=== PATIENT | female | born 1990 | race Caucasian/White ===

== ENCOUNTER 2018-12-23 21:26 | Emergency (ER) | payer OTHER ==
[~2018-12-23] VITALS: Ht 167.6 cm; Wt 95.3 kg
[2018-12-23 23:33] LABS: BILIRUBIN,URINE NEGATIVE (NEG); CLARITY,URINE CLEAR; COLOR,URINE YELLOW; NITRITE,URINE NEGATIVE (NEG); PH,URINE 5.5; PROTEIN,URINE NEGATIVE (NEG-TRACE); UROBILINOGEN,URINE 0.2 mg/dL (0.2 mg/dL)
[2018-12-23 23:35] LABS: BACTERIA,URINE 0 /HPF (0-FEW); WBC,URINE OCC /HPF (0-4)
[2018-12-23 23:36] LABS: RBC,URINE OCC /HPF (0-2); SQUAMOUS EPITHELIAL CELL,UR FEW /LPF
[2018-12-23] MEDS ORDERED: fentaNYL PF VIAL 100 MCG/2 ML VIAL IV ONE (23:45)
[2018-12-24 00:03] LABS: BASO % 0 % (0-3); EOS % 0 % (0-3); HEMATOCRIT 35.9 % (36.0-47.0); HEMOGLOBIN 12.1 g/dL (12.0-15.5); LYMPH # 2.8 x10^3/uL (1.0-4.8); LYMPH % 43 % (24-48); MEAN CORPUSCULAR HEMOGLOBIN 29 pg (25-35); MEAN CORPUSCULAR HGB CONC 34 g/dL (31-37); MEAN CORPUSCULAR VOLUME 85 fL (79-100); MONO # 0.5 x10^3/uL (0.0-1.1); MONO % 7 % (0-9); NEUT # 3.3 x10^3uL (1.8-7.7); NEUT % 50 % (31-73); PLATELET COUNT 232 x10^3/uL (140-400); RED BLOOD COUNT 4.25 x10^6/uL (3.50-5.40); RED CELL DISTRIBUTION WIDTH 14.7 % (11.5-14.5); WHITE BLOOD COUNT 6.6 x10^3/uL (4.0-11.0)
[2018-12-24 00:13] LABS: CALCIUM 9.5 mg/dL (8.5-10.1); CREATININE 0.9 mg/dL (0.6-1.0); GFR 75.1; POTASSIUM 3.7 mmol/L (3.5-5.1)
[2018-12-24 00:19] LABS: ALBUMIN 3.1 g/dL (3.4-5.0); ALBUMIN/GLOBULIN RATIO 0.6 (1.0-1.7); TOTAL BILIRUBIN 0.2 mg/dL (0.2-1.0)
[2018-12-24] MEDS ORDERED: fentaNYL PF VIAL 100 MCG/2 ML VIAL IV ONE (00:30)
[2018-12-24 00:33] VITALS: BP 127/75
[2018-12-24 00:40] LABS: U PREG PATIENT NEGATIVE (NEG)
--- NOTE | 2018-12-24 00:41 | RAD ---
Ultrasound pelvis 12/24/2018 INDICATION: Right lower quadrant pain. Ovarian cyst. COMPARISON: None available. TECHNIQUE: Sonographic evaluation of the pelvis was performed utilizing transabdominal and transvaginal imaging. Grayscale, color Doppler and spectral waveform analysis were utilized. FINDINGS: Uterus measures 6.5 x 4.4 x 3.6 cm. Endometrium measures 5 mm and is within normal limits. No suspicious uterine masses are identified. The right ovary measures 3.0 x 2.2 x 1.6 cm. There is a dominant follicle measuring 1.6 cm. Left ovary measures 3.1 x 1.8 x 1.8 cm. Dominant follicle in the left ovary measures 1.1 cm. Arterial and venous waveform identified bilaterally. There is no free fluid within the pelvis. IMPRESSION: Follicular changes are identified in the ovaries bilaterally which are perfused at the time of imaging. Electronically signed by: Nerissa Villaseñor MD (12/24/2018 12:38 AM) [id number]
[2018-12-24] MEDS ORDERED: CONTRAST GIVEN. MC PRN (01:00)
[2018-12-24] MEDS ORDERED: IOHEXOL 300 MG/ML 100ML VIAL. IV ONE (01:00)
--- NOTE | 2018-12-24 01:20 | RAD ---
PQRS Compliance Statement: One or more of the following individualized dose reduction techniques were utilized for this examination: 1. Automated exposure control 2. Adjustment of the mA and/or kV according to patient size 3. Use of iterative reconstruction technique CT abdomen/pelvis with contrast 12/24/2018 12:15 AM INDICATION: Right lower quadrant pain. COMPARISON: Ultrasound pelvis December 23, 2018 TECHNIQUE: Multiple axial CT images of the abdomen and pelvis were obtained after the intravenous administration of nonionic contrast. Coronal and sagittal reformats are provided. FINDINGS: Lung bases are clear. Heart size is within normal limits. Liver, spleen, bilateral adrenal glands, pancreas and kidneys are normal in appearance. Abdominal aorta is normal in course and caliber. No pathologically enlarged lymph nodes are identified in abdomen and pelvis. There is no free fluid or free intraperitoneal air. Small and large bowel are normal in caliber. There is no evidence for bowel obstruction. There are no pericolonic inflammatory changes. A normal, nondilated appendix is visualized without adjacent inflammatory changes. There may be minimal inflammation involving the terminal ileum. Urinary bladder is within normal limits given degree of distention. Follicular changes are identified in the adnexa. Uterus is normal by CT. No suspicious osseous abnormality is identified. IMPRESSION: Minimal inflammation involving the terminal ileum as may be seen with terminal ileitis. Correlate with symptoms. No evidence for bowel obstruction. Appendix appears normal. Electronically signed by: Nerissa Villaseñor MD (12/24/2018 1:17 AM) [facility]
[2018-12-24] MEDS ORDERED: PROM25SU32 RC (01:44)
[2018-12-24] MEDS ORDERED: METR500T PO (01:44)
[2018-12-24] MEDS ORDERED: CIPR500T PO (01:44)
[2018-12-24] MEDS ORDERED: OXYC1TAB15 PO (01:44)
--- NOTE | 2018-12-24 01:52 | PHYS DOC ---
Past Medical History Past Medical History: Other Additional Past Medical Histor: CVID, Deion, Adrenal glad insufficiency Past Surgical History: Cholecystectomy, Other Additional Past Surgical Histo: Cervical lymph node removal, multiple abdominal surgeries, right ankle Alcohol Use: None Drug Use: None Adult General Chief Complaint Chief Complaint: ABDOMINAL PAIN HPI HPI Patient is a 28 year old female who is presenting with abdominal pain times the last couple of days right lower quadrant sharp in nature associated with nausea and no diarrhea no fever no vomiting no dysuria last measure. Was 2 days ago does have a history of ovarian cysts and she required surgery for those in the past she still has her appendix. Pain is worsening with time Review of Systems Review of Systems Constitutional: Denies fever or chills [] Eyes: Denies change in visual acuity, redness, or eye pain [] HENT: Denies nasal congestion or sore throat [] Respiratory: Denies cough or shortness of breath [] Musculoskeletal: Denies back pain or joint pain [] Integument: Denies rash or skin lesions [] Neurologic: Denies headache, focal weakness or sensory changes [] Endocrine: Denies polyuria or polydipsia [] All other systems were reviewed and found to be within normal limits, except as documented in this note. Current Medications Current Medications Current Medications Medications (Trade) Dose Ordered Sig/Osiel Start Time Stop Time Status Last Admin Dose Admin Ciprofloxacin (Cipro) 500 mg 1X ONCE 12/24/18 02:00 12/24/18 02:01 Fentanyl Citrate (Fentanyl 2ml Vial) 50 mcg 1X ONCE 12/24/18 00:30 12/24/18 00:31 DC 12/24/18 00:38 50 MCG Info (CONTRAST GIVEN -- Rx MONITORING) 1 each PRN DAILY PRN 12/24/18 01:00 12/26/18 00:59 Iohexol (Omnipaque 300 Mg/ml) 75 ml 1X ONCE 12/24/18 01:00 12/24/18 01:01 DC 12/24/18 01:01 75 ML Metronidazole (Flagyl) 500 mg 1X ONCE 12/24/18 02:00 12/24/18 02:01 Oxycodone/ Acetaminophen (Percocet 5/325) 2 tab 1X ONCE 12/24/18 02:00 12/24/18 02:01 Promethazine HCl (Phenergan Supp) 25 mg 1X ONCE 12/24/18 02:00 12/24/18 02:01 Allergies Allergies Allergies Coded Allergies Type Severity Reaction Last Updated Verified latex Allergy Severe Rash 12/23/18 Yes vancomycin Allergy Severe Rash 12/23/18 Yes adhesive Allergy Intermediate Rash 12/23/18 Yes ketorolac Allergy Intermediate Rash 12/23/18 Yes ondansetron Allergy Intermediate Rash 12/23/18 Yes metoclopramide Allergy Mild Anxiety 12/23/18 Yes prednisone Adverse Reaction Severe Anxiety 12/23/18 Yes Physical Exam Physical Exam Constitutional: Well developed, well nourished, no acute distress, non-toxic appearance. [] HENT: Normocephalic, atraumatic, bilateral external ears normal, oropharynx moist, no oral exudates, nose normal. [] Eyes: PERRLA, EOMI, conjunctiva normal, no discharge. [] Neck: Normal range of motion, no tenderness, supple, no stridor. [] Pulmonary: Normal respiratory effort no increased work of breathing no obvious chest wall trauma Abdomen: Bowel sounds normal, soft, right lower quadrant tenderness, no masses, no pulsatile masses. [] Skin: Warm, dry, no erythema, no rash. [] Back: No tenderness, no CVA tenderness. [] Extremities: No tenderness, no cyanosis, no clubbing, ROM intact, no edema. [] Neurologic: Alert and oriented X 3, normal motor function, normal sensory function, no focal deficits noted. [] Psychologic: Affect normal, judgement normal, mood normal. [] Current Patient Data Vital Signs Vital Signs Date Time Temp Pulse Resp B/P (MAP) Pulse Ox O2 Delivery O2 Flow Rate FiO2 12/24/18 00:38 16 97 Room Air 12/23/18 22:22 97.9 88 126/82 (97) 97.9 Lab Values Laboratory Tests Test 12/23/18 22:50 12/23/18 23:40 Urine Collection Type Unknown Urine Color Yellow Urine Clarity Clear Urine pH 5.5 Urine Specific [place] 1.025 Urine Protein Negative mg/dL (NEG-TRACE) Urine Glucose (UA) Negative mg/dL (NEG) Urine Ketones (Stick) Negative mg/dL (NEG) Urine Blood Small (NEG) Urine Nitrite Negative (NEG) Urine Bilirubin Negative (NEG) Urine Urobilinogen Dipstick 0.2 mg/dL (0.2 mg/dL) Urine Leukocyte Esterase Negative (NEG) Urine RBC Occ /HPF (0-2) Urine WBC Occ /HPF (0-4) Urine Squamous Epithelial Cells Few /LPF Urine Bacteria 0 /HPF (0-FEW) Urine Test Negative (NEG) White Blood Count 6.6 x10^3/uL (4.0-11.0) Red Blood Count 4.25 x10^6/uL (3.50-5.40) Hemoglobin 12.1 g/dL (12.0-15.5) Hematocrit 35.9 % (36.0-47.0) L Mean Corpuscular Volume 85 fL (79-100) Mean Corpuscular Hemoglobin 29 pg (25-35) Mean Corpuscular Hemoglobin Concent 34 g/dL (31-37) Red Cell Distribution Width 14.7 % (11.5-14.5) H Platelet Count 232 x10^3/uL (140-400) Neutrophils (%) (Auto) 50 % (31-73) Lymphocytes (%) (Auto) 43 % (24-48) Monocytes (%) (Auto) 7 % (0-9) Eosinophils (%) (Auto) 0 % (0-3) Basophils (%) (Auto) 0 % (0-3) Neutrophils # (Auto) 3.3 x10^3uL (1.8-7.7) Lymphocytes # (Auto) 2.8 x10^3/uL (1.0-4.8) Monocytes # (Auto) 0.5 x10^3/uL (0.0-1.1) Eosinophils # (Auto) 0.0 x10^3/uL (0.0-0.7) Basophils # (Auto) 0.0 x10^3/uL (0.0-0.2) Sodium Level 139 mmol/L (136-145) Potassium Level 3.7 mmol/L (3.5-5.1) Chloride Level 103 mmol/L (98-107) Carbon Dioxide Level 24 mmol/L (21-32) Anion Gap 12 (6-14) Blood Urea Nitrogen 15 mg/dL (7-20) Creatinine 0.9 mg/dL (0.6-1.0) Estimated GFR (Cockcroft-Gault) 75.1 BUN/Creatinine Ratio 17 (6-20) Glucose Level 98 mg/dL (70-99) Calcium Level 9.5 mg/dL (8.5-10.1) Total Bilirubin 0.2 mg/dL (0.2-1.0) Aspartate Amino Transferase (AST) 19 U/L (15-37) Alanine Aminotransferase (ALT) 21 U/L (14-59) Alkaline Phosphatase 107 U/L (46-116) Total Protein 8.0 g/dL (6.4-8.2) Albumin 3.1 g/dL (3.4-5.0) L Albumin/Globulin Ratio 0.6 (1.0-1.7) L Lipase 147 U/L (73-393) Laboratory Tests 12/23/18 23:40 Laboratory Tests 12/23/18 23:40 EKG EKG [] Radiology/Procedures Radiology/Procedures FINDINGS: Uterus measures 6.5 x 4.4 x 3.6 cm. Endometrium measures 5 mm and is within normal limits. No suspicious uterine masses are identified. The right ovary measures 3.0 x 2.2 x 1.6 cm. There is a dominant follicle measuring 1.6 cm. Left ovary measures 3.1 x 1.8 x 1.8 cm. Dominant follicle in the left ovary measures 1.1 cm. Arterial and venous waveform identified bilaterally. There is no free fluid within the pelvis. IMPRESSION: Follicular changes are identified in the ovaries bilaterally which are perfused at the time of imaging. Electronically signed by: Zaida Villaseñor MD (12/24/2018 12:38 AM) [facility] DICTATED and SIGNED BY: ZAIDA VILLASEÑOR MD DATE: 12/24/18 0038 [] Impressions: IMPRESSION: Minimal inflammation involving the terminal ileum as may be seen with terminal ileitis. Correlate with symptoms. No evidence for bowel obstruction. Appendix appears normal. Course & Med Decision Making Course & Med Decision Making Pertinent Labs and Imaging studies reviewed. (See chart for details) []28-year-old female prior history of ovarian cyst pathology presenting with lower abdominal pain and vomiting. Ultrasound negative for ovarian pathology CT scan shows terminal ileitis Patient denies previous history of inflammatory bowel disease per prescription was given for antibiotics as well as pain control and recommended follow-up with primary care doctor for gastroenterology referral especially for any persistent or recurrent symptoms. Patient is agreeable to the plan return impressions discussed think she is a ppropriate for outpatient management at this time Dragon Disclaimer Doretha Disclaimer This electronic medical record was generated, in whole or in part, using a voice recognition dictation system. Departure Departure Impression: Primary Impression: Ileitis Disposition: HOME, SELF-CARE Condition: STABLE Patient Instructions: Abdominal Pain, [id number] Additional Instructions: ct scan shows terminal ileitis. take antibiotics. see primary doctoor for re- evaluation, consideration of gi referral especially for recurrent symptoms. Scripts Metronidazole (FLAGYL) 500 Mg Tablet 1 TAB PO BID, #14 TAB Prov: LEEROY LOPEZ MD 12/24/18 Ciprofloxacin Hcl (CIPROFLOXACIN HCL) 500 Mg Tablet 1 TAB PO BID, #14 TAB Prov: LEEROY LOPEZ MD 12/24/18 Promethazine HCl (Phenergan) 25 Mg Supp.rect 25 MG RC TID PRN for VOMITING, #20 SUPP.RECT Prov: LEEROY LOPEZ MD 12/24/18 Oxycodone/Apap 5-325 (PERCOCET 5-325 MG TABLET ) 1 Each Tablet 1-2 EACH PO PRN TID PRN for PAIN, #20 TAB pain Prov: LEEROY LOPEZ MD 12/24/18 LEEROY LOPEZ MD Dec 24, 2018 01:52
[2018-12-24] MEDS ORDERED: PROMETHAZINE 25 MG SUPP.RECT. PR ONE (02:00)
[2018-12-24] MEDS ORDERED: CIPROFLOXACIN HCL 250 MG TABLET. PO ONE (02:00)
[2018-12-24] MEDS ORDERED: metroNIDAZOLE 500 MG TABLET PO ONE (02:00)
[2018-12-24] MEDS ORDERED: oxyCODONE/APAP 5/325 1 TAB TABLET PO ONE (02:00)
== END 2018-12-24 02:00 | disposition home or self-care (01) ==
LOC: ER 21:26
DX: K52.9 Noninfective gastroenteritis and colitis, unspecified (principal); Z90.49 Acquired absence of other specified parts of digestive tract; Z88.1 Allergy status to other antibiotic agents; Z88.6 Allergy status to analgesic agent; Z88.5 Allergy status to narcotic agent; Z91.040 Latex allergy status; Z88.8 Allergy status to other drugs, medicaments and biological substances
CPT/HCPCS: 36415; 74177; 76830; 76856; 80053; 81001; 81025; 83690; 85025; 96374; 96376; 99285; J3010; Q9967

== ENCOUNTER 2018-12-26 19:59 | Emergency (ER) | payer OTHER ==
[~2018-12-26] VITALS: Ht 167.6 cm; Wt 95.3 kg
[~2018-12-26 19:59] MED LIST: CIPR500T PO; METR500T PO; OXYC1TAB15 PO; PROM25SU32 RC
[2018-12-26 20:42] LABS: BILIRUBIN,URINE NEGATIVE (NEG); CLARITY,URINE CLEAR; COLOR,URINE YELLOW; NITRITE,URINE NEGATIVE (NEG); PROTEIN,URINE NEGATIVE (NEG-TRACE); UROBILINOGEN,URINE 0.2 mg/dL (0.2 mg/dL)
[2018-12-26] MEDS ORDERED: IV NORMAL SALINE 1000ML BAG 1,000 ML IV ONE (20:45)
[2018-12-26 21:00] LABS: BACTERIA,URINE 0 /HPF (0-FEW); RBC,URINE OCC /HPF (0-2); WBC,URINE OCC /HPF (0-4)
[2018-12-26] MEDS ORDERED: PROCHLORPERAZINE 10 MG/2 ML VIAL. IV ONE (21:15)
[2018-12-26] MEDS ORDERED: MORPHINE SULFATE 10 MG/ML VIAL. IV ONE (21:15)
[2018-12-26 21:58] LABS: BASO % 0 % (0-3); EOS % 1 % (0-3); HEMATOCRIT 34.2 % (36.0-47.0); HEMOGLOBIN 11.5 g/dL (12.0-15.5); LYMPH # 3.3 x10^3/uL (1.0-4.8); LYMPH % 55 % (24-48); MEAN CORPUSCULAR HEMOGLOBIN 28 pg (25-35); MEAN CORPUSCULAR HGB CONC 34 g/dL (31-37); MEAN CORPUSCULAR VOLUME 84 fL (79-100); MONO # 0.5 x10^3/uL (0.0-1.1); MONO % 8 % (0-9); NEUT # 2.1 x10^3uL (1.8-7.7); NEUT % 35 % (31-73); PLATELET COUNT 218 x10^3/uL (140-400); RED BLOOD COUNT 4.06 x10^6/uL (3.50-5.40); RED CELL DISTRIBUTION WIDTH 14.1 % (11.5-14.5)
[2018-12-26 22:08] LABS: CALCIUM 8.5 mg/dL (8.5-10.1); CREATININE 0.8 mg/dL (0.6-1.0); POTASSIUM 3.8 mmol/L (3.5-5.1)
[2018-12-26 22:14] LABS: ALBUMIN 2.9 g/dL (3.4-5.0); ALBUMIN/GLOBULIN RATIO 0.7 (1.0-1.7); TOTAL BILIRUBIN 0.2 mg/dL (0.2-1.0); TOTAL PROTEIN 7.2 g/dL (6.4-8.2)
[2018-12-26 23:00] VITALS: BP 140/81
[2018-12-26] MEDS ORDERED: PROM25SU32 RC (23:05)
--- NOTE | 2018-12-26 23:06 | PHYS DOC ---
Past Medical History Past Medical History: Other Additional Past Medical Histor: CVID, Deion, Adrenal glad insufficiency Past Surgical History: Cholecystectomy, Other Additional Past Surgical Histo: Cervical lymph node removal, multiple abdominal surgeries, right ankle Alcohol Use: None Drug Use: None Adult General Chief Complaint Chief Complaint: ABDOMINAL PAIN HPI HPI Patient is a 28 year old female who presents to the ED today complaining of 10 out of 10 right lower quadrant abdominal pain with nausea and vomiting that has been going on for 3 days. Patient states she was seen in the ED 2 days ago and was diagnosed with terminal ileitis she states she was discharge and Flagyl and Cipro promethazine suppositories and oxycodone for pain. She states the oxycodon e is not touching her pain. She states she was not able to use her nausea medication because she was informed by the pharmacy it needs to be refrigerated in 30 minutes otherwise is not good. She states she was not able to refrigerated the medicine in 30 minutes so she threw it away. Denies any hematemesis or melena. Review of Systems Review of Systems Constitutional: Denies fever or chills [] Eyes: Denies change in visual acuity, redness, or eye pain [] HENT: Denies nasal congestion or sore throat [] Respiratory: Denies cough or shortness of breath [] Cardiovascular: No additional information not addressed in HPI [] GI: Reports right sided abdominal pain, nausea, vomiting, and diarrhea : Denies dysuria or hematuria [] Musculoskeletal: Denies back pain or joint pain [] Integument: Denies rash or skin lesions [] Neurologic: Denies headache, focal weakness or sensory changes [] All other systems were reviewed and found to be within normal limits, except as documented in this note. Current Medications Current Medications Current Medications Medications (Trade) Dose Ordered Sig/Osiel Start Time Stop Time Status Last Admin Dose Admin Morphine Sulfate (Morphine Sulfate) 5 mg 1X ONCE 12/26/18 21:15 12/26/18 21:16 DC 12/26/18 22:20 5 MG Prochlorperazine Edisylate (Compazine) 10 mg 1X ONCE 12/26/18 21:15 12/26/18 21:16 DC Sodium Chloride 1,000 ml @ 1,000 mls/hr 1X ONCE 12/26/18 20:45 12/26/18 21:44 DC 12/26/18 21:55 1,000 MLS/HR Allergies Allergies Allergies Coded Allergies Type Severity Reaction Last Updated Verified latex Allergy Severe Rash 12/23/18 Yes vancomycin Allergy Severe Rash 12/23/18 Yes adhesive Allergy Intermediate Rash 12/23/18 Yes ketorolac Allergy Intermediate Rash 12/23/18 Yes ondansetron Allergy Intermediate Rash 12/23/18 Yes metoclopramide Allergy Mild Anxiety 12/23/18 Yes prednisone Adverse Reaction Severe Anxiety 12/23/18 Yes Physical Exam Physical Exam Constitutional: Well developed, well nourished, no acute distress, non-toxic appearance. [] HENT: Normocephalic, atraumatic, bilateral external ears normal, oropharynx moist, no oral exudates, nose normal. [] Eyes: PERRLA, EOMI, conjunctiva normal, no discharge. [] Neck: Normal range of motion, no tenderness, supple, no stridor. [] Cardiovascular:Heart rate regular rhythm, no murmur [] Lungs & Thorax: Bilateral breath sounds clear to auscultation [] Abdomen: Bowel sounds normal, soft, slight right mid and lower quadrant tenderness, negative Truong's sign, negative psoas sign, negative obturator sign, no masses, no pulsatile masses. [] Skin: Warm, dry, no erythema, no rash. [] Back: No tenderness, no CVA tenderness. [] Extremities: No tenderness, no cyanosis, no clubbing, ROM intact, no edema. [] Neurologic: Alert and oriented X 3, normal motor function, normal sensory function, no focal deficits noted. [] Psychologic: Flat affect, appears tearful. Current Patient Data Vital Signs Vital Signs Date Time Temp Pulse Resp B/P (MAP) Pulse Ox O2 Delivery O2 Flow Rate FiO2 12/26/18 23:00 90 16 140/81 (100) 96 Room Air 12/26/18 21:00 98.1 98.1 Lab Values Laboratory Tests Test 12/26/18 20:03 12/26/18 21:45 Urine Collection Type Unknown Urine Color Yellow Urine Clarity Clear Urine pH 6.0 Urine Specific [place] 1.010 Urine Protein Negative mg/dL (NEG-TRACE) Urine Glucose (UA) Negative mg/dL (NEG) Urine Ketones (Stick) Negative mg/dL (NEG) Urine Blood Negative (NEG) Urine Nitrite Negative (NEG) Urine Bilirubin Negative (NEG) Urine Urobilinogen Dipstick 0.2 mg/dL (0.2 mg/dL) Urine Leukocyte Esterase Negative (NEG) Urine RBC Occ /HPF (0-2) Urine WBC Occ /HPF (0-4) Urine Squamous Epithelial Cells None /LPF Urine Bacteria 0 /HPF (0-FEW) White Blood Count 6.0 x10^3/uL (4.0-11.0) Red Blood Count 4.06 x10^6/uL (3.50-5.40) Hemoglobin 11.5 g/dL (12.0-15.5) L Hematocrit 34.2 % (36.0-47.0) L Mean Corpuscular Volume 84 fL (79-100) Mean Corpuscular Hemoglobin 28 pg (25-35) Mean Corpuscular Hemoglobin Concent 34 g/dL (31-37) Red Cell Distribution Width 14.1 % (11.5-14.5) Platelet Count 218 x10^3/uL (140-400) Neutrophils (%) (Auto) 35 % (31-73) Lymphocytes (%) (Auto) 55 % (24-48) H Monocytes (%) (Auto) 8 % (0-9) Eosinophils (%) (Auto) 1 % (0-3) Basophils (%) (Auto) 0 % (0-3) Neutrophils # (Auto) 2.1 x10^3uL (1.8-7.7) Lymphocytes # (Auto) 3.3 x10^3/uL (1.0-4.8) Monocytes # (Auto) 0.5 x10^3/uL (0.0-1.1) Eosinophils # (Auto) 0.0 x10^3/uL (0.0-0.7) Basophils # (Auto) 0.0 x10^3/uL (0.0-0.2) Sodium Level 140 mmol/L (136-145) Potassium Level 3.8 mmol/L (3.5-5.1) Chloride Level 106 mmol/L (98-107) Carbon Dioxide Level 25 mmol/L (21-32) Anion Gap 9 (6-14) Blood Urea Nitrogen 11 mg/dL (7-20) Creatinine 0.8 mg/dL (0.6-1.0) Estimated GFR (Cockcroft-Gault) 86.0 BUN/Creatinine Ratio 14 (6-20) Glucose Level 87 mg/dL (70-99) Calcium Level 8.5 mg/dL (8.5-10.1) Total Bilirubin 0.2 mg/dL (0.2-1.0) Aspartate Amino Transferase (AST) 24 U/L (15-37) Alanine Aminotransferase (ALT) 24 U/L (14-59) Alkaline Phosphatase 100 U/L (46-116) Total Protein 7.2 g/dL (6.4-8.2) Albumin 2.9 g/dL (3.4-5.0) L Albumin/Globulin Ratio 0.7 (1.0-1.7) L Lipase 91 U/L (73-393) Laboratory Tests 12/26/18 21:45 Laboratory Tests 12/26/18 21:45 EKG EKG [] Radiology/Procedures Radiology/Procedures [] Course & Med Decision Making Course & Med Decision Making Pertinent Labs and Imaging studies reviewed. (See chart for details) This is a 28-year-old female patient presenting to the ED today with right sided abdominal pain for 3 days, was seen in the ED 2 days ago, diagnosed with ileitis discharged on Flagyl Cipro promethazine suppositories and oxycodone, she states the oxycodone is not touching her pain. Her lab work is negative for any acute findings, WBCs are normal, electrolytes are normal. Urine analysis is negative for infection. Given IV fluids and morphine in the ED. Talked to patient about admission versus discharge. She was willing to be discharged to home. She states that she does not have the promethazine suppository because she apparently was told to refrigerate them in 30 minutes after picking them up from the pharmacy overdose of not good. She did not refrigerate the medicines and states it is not good anymore. She is requesting another prescription for promethazine. Give 6 promethazine suppositories. She is allergic to Compazine, Zofran, Reglan, informed her she can still take her oxycodone as needed for pain there is no indication for anything stronger than that. Recommend f/u with GI in 1-3 days. Dragon Disclaimer Dragon Disclaimer This electronic medical record was generated, in whole or in part, using a voice recognition dictation system. Departure Departure Impression: Primary Impression: Ileitis, terminal Additional Impression: Abdominal pain Disposition: HOME, SELF-CARE Condition: STABLE Referrals: JING ROYAL MD (PCP) follow up in 1 week ALEXYS MISHRA MD follow up in 1-3 days Patient Instructions: Abdominal Pain Additional Instructions: You were evaluated in the emergency room for abdominal pain. We highly recommend you follow-up with the GI doctor provided as well as your primary care doctor in the next 1-3 days. Continue taking the medications you have at home, ensure you complete antibiotics. Scripts Promethazine HCl (Phenergan) 25 Mg Supp.rect 25 MG RC TID PRN for NAUSEA, #6 SUPP.RECT Prov: EMORY LUCAS [employer] 12/26/18 Problem Qualifiers Primary Impression: Ileitis, terminal Digestive disease complication type: unspecified complication Qualified Codes: K50.019 - Crohn's disease of small intestine with unspecified complications Additional Impression: Abdominal pain Abdominal location: right lower quadrant Qualified Codes: R10.31 - Right lower quadrant pain EMORY LUCAS [employer] Dec 26, 2018 23:06
== END 2018-12-26 23:30 | disposition home or self-care (01) ==
LOC: ER 19:59
DX: K50.00 Crohn's disease of small intestine without complications (principal); R11.2 Nausea with vomiting, unspecified; Z90.49 Acquired absence of other specified parts of digestive tract; Z88.1 Allergy status to other antibiotic agents; Z88.5 Allergy status to narcotic agent; Z88.6 Allergy status to analgesic agent; Z91.040 Latex allergy status; Z88.8 Allergy status to other drugs, medicaments and biological substances
CPT/HCPCS: 36415; 80053; 81001; 83690; 85025; 96361; 96374; 99284; J2270; J7030

== ENCOUNTER 2019-04-04 21:57 | Emergency (ER) | payer OTHER ==
[~2019-04-04] VITALS: Ht 167.6 cm; Wt 95.3 kg
--- NOTE | 2019-04-04 22:22 | PHYS DOC ---
Past Medical History Past Medical History: Other Additional Past Medical Histor: CVID, Deion, Adrenal glad insufficiency Past Surgical History: Cholecystectomy, Other Additional Past Surgical Histo: Cervical lymph node removal, multiple abdominal surgeries, right ankle Alcohol Use: None Drug Use: None Adult General Chief Complaint Chief Complaint: ABDOMINAL PAIN HPI HPI 28-year-old female presents to the emergency room complaints of abdominal pain, nausea, vomiting, fever. Patient describes the pain 8 out of 10 states it's constant right lower quadrant. She has underlying history of non-Hodgkin's lymphoma, adrenal insufficiency. Patient status post cholecystectomy. Respiratory approximately 2 weeks ago. Patient states she's been unable to keep any medications down including Motrin. Movements make her pain worse, nothing makes her pain better. Patient denies any headache or visual changes. No sick contacts. Review of Systems Review of Systems Constitutional: Fever Eyes: Denies change in visual acuity, redness, or eye pain [] HENT: Denies nasal congestion or sore throat [] Respiratory: Denies cough or shortness of breath [] Cardiovascular: No additional information not addressed in HPI [] GI: abdominal pain, nausea, vomiting, no bloody stools or diarrhea [] : Denies dysuria or hematuria [] Musculoskeletal: Denies back pain or joint pain [] Integument: Denies rash or skin lesions [] Neurologic: Denies headache, focal weakness or sensory changes [] All other systems were reviewed and found to be within normal limits, except as documented in this note. Current Medications Current Medications Current Medications Medications (Trade) Dose Ordered Sig/Osiel Start Time Stop Time Status Last Admin Dose Admin Fentanyl Citrate (Fentanyl 2ml Vial) 50 mcg 1X ONCE 04/04/19 22:45 04/04/19 22:46 DC 04/04/19 22:49 50 MCG Info (CONTRAST GIVEN -- Rx MONITORING) 1 each PRN DAILY PRN 04/04/19 23:15 04/06/19 23:14 Iohexol (Omnipaque 300 Mg/ml) 75 ml 1X ONCE 04/04/19 23:15 04/04/19 23:16 DC 04/04/19 23:07 75 ML Sodium Chloride 1,000 ml @ 1,000 mls/hr 1X ONCE 04/04/19 23:30 04/04/19 23:20 DC Allergies Allergies Allergies Coded Allergies Type Severity Reaction Last Updated Verified latex Allergy Severe Rash 12/23/18 Yes vancomycin Allergy Severe Rash 12/23/18 Yes adhesive Allergy Intermediate Rash 12/23/18 Yes ketorolac Allergy Intermediate Rash 12/23/18 Yes ondansetron Allergy Intermediate Rash 12/23/18 Yes metoclopramide Allergy Mild Anxiety 12/23/18 Yes haloperidol Allergy Unknown 04/04/19 Yes prednisone Adverse Reaction Severe Anxiety 12/23/18 Yes Physical Exam Physical Exam Constitutional: Well developed, well nourished, no acute distress, non-toxic ap pearance. [] HENT: Normocephalic, atraumatic, bilateral external ears normal, oropharynx moist, no oral exudates, nose normal. [] Cardiovascular:Heart rate regular rhythm, no murmur [] Lungs & Thorax: Bilateral breath sounds clear to auscultation [] Abdomen: Bowel sounds normal, soft, tenderness pressure right lower quadrant, no masses, no pulsatile masses. [] Skin: Warm, dry, no erythema, no rash. [] Back: No tenderness, no CVA tenderness. [] Extremities: No tenderness, no edema. [] Neurologic: Alert and oriented X 3, no focal deficits noted. [] Psychologic: Affect normal, judgement normal, mood normal. [] Current Patient Data Vital Signs Vital Signs Date Time Temp Pulse Resp B/P (MAP) Pulse Ox O2 Delivery O2 Flow Rate FiO2 04/04/19 23:15 93 134/78 (96) 98 Room Air 04/04/19 22:05 99.1 17 99.1 Lab Values Laboratory Tests Test 04/04/19 22:09 04/04/19 22:12 04/04/19 22:32 Urine Collection Type Unknown Urine Color Yellow Urine Clarity Clear Urine pH 6.5 Urine Specific [place] <=1.005 Urine Protein Negative mg/dL (NEG-TRACE) Urine Glucose (UA) Negative mg/dL (NEG) Urine Ketones (Stick) Negative mg/dL (NEG) Urine Blood Trace (NEG) Urine Nitrite Negative (NEG) Urine Bilirubin Negative (NEG) Urine Urobilinogen Dipstick 0.2 mg/dL (0.2 mg/dL) Urine Leukocyte Esterase Negative (NEG) Urine RBC 6-10 /HPF (0-2) Urine WBC Occ /HPF (0-4) Urine Squamous Epithelial Cells Few /LPF Urine Bacteria 0 /HPF (0-FEW) POC Urine HCG, Qualitative Hcg negative (Negative) White Blood Count 9.5 x10^3/uL (4.0-11.0) Red Blood Count 4.46 x10^6/uL (3.50-5.40) Hemoglobin 12.1 g/dL (12.0-15.5) Hematocrit 36.5 % (36.0-47.0) Mean Corpuscular Volume 82 fL (79-100) Mean Corpuscular Hemoglobin 27 pg (25-35) Mean Corpuscular Hemoglobin Concent 33 g/dL (31-37) Red Cell Distribution Width 14.2 % (11.5-14.5) Platelet Count 246 x10^3/uL (140-400) Neutrophils (%) (Auto) 67 % (31-73) Lymphocytes (%) (Auto) 26 % (24-48) Monocytes (%) (Auto) 4 % (0-9) Eosinophils (%) (Auto) 3 % (0-3) Basophils (%) (Auto) 1 % (0-3) Neutrophils # (Auto) 6.3 x10^3/uL (1.8-7.7) Lymphocytes # (Auto) 2.5 x10^3/uL (1.0-4.8) Monocytes # (Auto) 0.4 x10^3/uL (0.0-1.1) Eosinophils # (Auto) 0.3 x10^3/uL (0.0-0.7) Basophils # (Auto) 0.0 x10^3/uL (0.0-0.2) Sodium Level 141 mmol/L (136-145) Potassium Level 4.1 mmol/L (3.5-5.1) Chloride Level 104 mmol/L (98-107) Carbon Dioxide Level 25 mmol/L (21-32) Anion Gap 12 (6-14) Blood Urea Nitrogen 9 mg/dL (7-20) Creatinine 0.8 mg/dL (0.6-1.0) Estimated GFR (Cockcroft-Gault) 86.0 BUN/Creatinine Ratio 11 (6-20) Glucose Level 91 mg/dL (70-99) Lactic Acid Level 1.2 mmol/L (0.4-2.0) Calcium Level 9.8 mg/dL (8.5-10.1) Total Bilirubin 0.2 mg/dL (0.2-1.0) Aspartate Amino Transferase (AST) 26 U/L (15-37) Alanine Aminotransferase (ALT) 24 U/L (14-59) Alkaline Phosphatase 130 U/L (46-116) H Total Protein 8.5 g/dL (6.4-8.2) H Albumin 3.6 g/dL (3.4-5.0) Albumin/Globulin Ratio 0.7 (1.0-1.7) L Laboratory Tests 04/04/19 22:32 Laboratory Tests 04/04/19 22:32 EKG EKG [] Radiology/Procedures Radiology/Procedures [facility] [address] [place], [place] [id number] IMAGING REPORT Signed PATIENT: JAKE REYES ACCOUNT: [id number] : 1990 LOCATION: ER AGE: 28 SEX: F EXAM STATUS: REG ER ORD. PHYSICIAN: MARITZA CAMPBELL MD REASON: RLQ abdominal pain PROCEDURE: CT ABD PELV W/ IV CONTRST ONLY Exam: CT abdomen and pelvis with contrast INDICATION: Right lower quadrant abdominal pain TECHNIQUE: Sequential axial images through the abdomen and pelvis obtained 75 mL of Omni 300 IV contrast. Sagittal and coronal reformatted images were reconstructed from the axial data and reviewed. Comparisons: CT abdomen and pelvis 12/24/2018 FINDINGS: Heart size is normal. No pericardial effusion. Visualized lung bases are clear. No pleural effusion. Liver, spleen, pancreas, and adrenals are unremarkable. Gallbladder is absent. Kidneys demonstrate symmetric enhancement. No perinephric inflammation or hydronephrosis. No renal or ureteral calculi are identified. Bladder is distended and appears thin-walled. Uterus is not enlarged.. Cystic lesion within the right adnexa measuring up to 3 cm. Large and small bowel are unremarkable. Appendix is not definitively identified. No inflammatory changes the right lower quadrant to suggest acute appendicitis. Abdominal aorta has a normal course and caliber. Abdominal vasculature is patent. No enlarged intra-abdominal lymph nodes are identified. No suspicious osseous lesions or acute fractures. IMPRESSION: 1. Cystic lesion within the right adnexa measuring up to 3 cm, likely representing dominant cyst within the right ovary. This can be better evaluated with ultrasound. 2. Otherwise, no acute process identified within the abdomen or pelvis. Exposure: One or more of the following in the visualized dose reduction techniques were utilized for this examination: 1. Automated exposure control 2. Adjustment of the MA and/or KV according to patient size 3. Use of iterative of reconstructive technique Electronically signed by: Edinson Velazquez MD (04/04/2019 11:35 PM) [employer] DICTATED and SIGNED BY: EDINSON VELAZQUEZ MD DATE: 04/04/19 2327 [] Course & Med Decision Making Course & Med Decision Making Pertinent Labs and Imaging studies reviewed. (See chart for details) []28-year-old female presents to the emergency room complaints of abdominal pain, nausea, vomiting, fever. Patient describes the pain 8 out of 10 states it's constant right lower quadrant. She has underlying history of non-Hodgkin's lymphoma, adrenal insufficiency. Patient status post cholecystectomy. Respiratory approximately 2 weeks ago. Patient states she's been unable to keep any medications down including Motrin. Movements make her pain worse, nothing makes her pain better. Patient denies any headache or visual changes. No sick contacts. Labs, imaging reviewed. No evidence of acute infectious process, CT of the abdomen and pelvis reviewed without evidence of acute process. She does have a 3 cm adnexal cyst in the right ovary. Discussed dc with patient. Return precautions provided. Understanding the discharge plan. Dragon Disclaimer Dragon Disclaimer This electronic medical record was generated, in whole or in part, using a voice recognition dictation system. Departure Departure Impression: Primary Impression: Abdominal pain Additional Impression: Ovarian cyst Disposition: 01 HOME, SELF-CARE Condition: STABLE Referrals: JING ROYAL MD (PCP) Patient Instructions: Ovarian Cyst, [id number] Additional Instructions: Recommend follow up with PCP 3 - 5 days Return to the ER with worsening symptoms, intractable pain, fever, altered mental status Tylenol/Motrin as needed for pain Bentyl as needed for pain Zofran as needed for nausea Scripts Dicyclomine Hcl (DICYCLOMINE HCL) 10 Mg Capsule 10 MG PO QID for 10 Days, #40 CAP Prov: MARITZA CAMPBELL MD 04/04/19 Ondansetron Hcl (ZOFRAN) 4 Mg Tablet 1 TAB PO PRN Q6-8HRS, #12 TAB Prov: MARITZA CAMPBELL MD 04/04/19 Problem Qualifiers Primary Impression: Abdominal pain Abdominal location: right lower quadrant Qualified Codes: R10.31 - Right lower quadrant pain MARITZA CAMPBELL MD Apr 04, 2019 22:22
[2019-04-04 22:41] LABS: BILIRUBIN,URINE NEGATIVE (NEG); CLARITY,URINE CLEAR; COLOR,URINE YELLOW; NITRITE,URINE NEGATIVE (NEG); PH,URINE 6.5; PROTEIN,URINE NEGATIVE (NEG-TRACE); UROBILINOGEN,URINE 0.2 mg/dL (0.2 mg/dL)
[2019-04-04 22:45] LABS: BASO % 1 % (0-3); EOS # 0.3 x10^3/uL (0.0-0.7); EOS % 3 % (0-3); HEMATOCRIT 36.5 % (36.0-47.0); HEMOGLOBIN 12.1 g/dL (12.0-15.5); LYMPH # 2.5 x10^3/uL (1.0-4.8); LYMPH % 26 % (24-48); MEAN CORPUSCULAR HEMOGLOBIN 27 pg (25-35); MEAN CORPUSCULAR HGB CONC 33 g/dL (31-37); MEAN CORPUSCULAR VOLUME 82 fL (79-100); MONO # 0.4 x10^3/uL (0.0-1.1); MONO % 4 % (0-9); NEUT # 6.3 x10^3/uL (1.8-7.7); NEUT % 67 % (31-73); PLATELET COUNT 246 x10^3/uL (140-400); RED BLOOD COUNT 4.46 x10^6/uL (3.50-5.40); RED CELL DISTRIBUTION WIDTH 14.2 % (11.5-14.5); WHITE BLOOD COUNT 9.5 x10^3/uL (4.0-11.0)
[2019-04-04] MEDS ORDERED: IV NORMAL SALINE 1000ML BAG 1,000 ML IV ONE ×2 (22:45→23:30)
[2019-04-04] MEDS ORDERED: fentaNYL PF VIAL 100 MCG/2 ML VIAL IV ONE (22:45)
[2019-04-04 22:49] LABS: BACTERIA,URINE 0 /HPF (0-FEW); SQUAMOUS EPITHELIAL CELL,UR FEW /LPF; WBC,URINE OCC /HPF (0-4)
[2019-04-04 22:55] LABS: CALCIUM 9.8 mg/dL (8.5-10.1); CREATININE 0.8 mg/dL (0.6-1.0); POTASSIUM 4.1 mmol/L (3.5-5.1)
[2019-04-04 23:00] LABS: ALBUMIN 3.6 g/dL (3.4-5.0); ALBUMIN/GLOBULIN RATIO 0.7 (1.0-1.7); TOTAL BILIRUBIN 0.2 mg/dL (0.2-1.0); TOTAL PROTEIN 8.5 g/dL (6.4-8.2)
[2019-04-04] MEDS ORDERED: IOHEXOL 300 MG/ML 100ML VIAL. IV ONE (23:15)
[2019-04-04] MEDS ORDERED: CONTRAST GIVEN. MC PRN (23:15)
--- NOTE | 2019-04-04 23:38 | RAD ---
Exam: CT abdomen and pelvis with contrast INDICATION: Right lower quadrant abdominal pain TECHNIQUE: Sequential axial images through the abdomen and pelvis obtained 75 mL of Omni 300 IV contrast. Sagittal and coronal reformatted images were reconstructed from the axial data and reviewed. Comparisons: CT abdomen and pelvis 12/24/2018 FINDINGS: Heart size is normal. No pericardial effusion. Visualized lung bases are clear. No pleural effusion. Liver, spleen, pancreas, and adrenals are unremarkable. Gallbladder is absent. Kidneys demonstrate symmetric enhancement. No perinephric inflammation or hydronephrosis. No renal or ureteral calculi are identified. Bladder is distended and appears thin-walled. Uterus is not enlarged.. Cystic lesion within the right adnexa measuring up to 3 cm. Large and small bowel are unremarkable. Appendix is not definitively identified. No inflammatory changes the right lower quadrant to suggest acute appendicitis. Abdominal aorta has a normal course and caliber. Abdominal vasculature is patent. No enlarged intra-abdominal lymph nodes are identified. No suspicious osseous lesions or acute fractures. IMPRESSION: 1. Cystic lesion within the right adnexa measuring up to 3 cm, likely representing dominant cyst within the right ovary. This can be better evaluated with ultrasound. 2. Otherwise, no acute process identified within the abdomen or pelvis. Exposure: One or more of the following in the visualized dose reduction techniques were utilized for this examination: 1. Automated exposure control 2. Adjustment of the MA and/or KV according to patient size 3. Use of iterative of reconstructive technique Electronically signed by: Edinson Jolley MD (04/04/2019 11:35 PM) [facility]
[2019-04-04 23:45] VITALS: BP 116/82
[2019-04-04] MEDS ORDERED: DICY10CA3 PO (23:48)
[2019-04-04] MEDS ORDERED: ONDA4TAB7 PO (23:48)
[2019-04-05] MEDS ORDERED: fentaNYL PF VIAL 100 MCG/2 ML VIAL IV ONE (00:15)
== END 2019-04-05 00:20 | disposition home or self-care (01) ==
LOC: ER 21:57
DX: N83.201 Unspecified ovarian cyst, right side (principal); R11.2 Nausea with vomiting, unspecified; Z90.49 Acquired absence of other specified parts of digestive tract; Z91.040 Latex allergy status; Z88.1 Allergy status to other antibiotic agents; Z88.8 Allergy status to other drugs, medicaments and biological substances
CPT/HCPCS: 36415; 74177; 80053; 81001; 81025; 83605; 85025; 96361; 96374; 96376; 99285; J3010; J7030; Q9967

== ENCOUNTER 2019-04-08 22:34 | Emergency (ER) | payer OTHER ==
[~2019-04-08] VITALS: Ht 167.6 cm; Wt 95.3 kg
[~2019-04-08 22:34] MED LIST changes: +DICY10CA3 PO; +ONDA4TAB7 PO
[2019-04-08 22:45] VITALS: BP 112/67
[2019-04-08] MEDS ORDERED: MORPHINE SULFATE 10 MG/ML VIAL. IM ONE (23:15)
[2019-04-08] MEDS ORDERED: PROMETHAZINE 25 MG SUPP.RECT. PR ONE (23:30)
--- NOTE | 2019-04-09 00:49 | PHYS DOC ---
Past Medical History Past Medical History: Cancer, Other Additional Past Medical Histor: CVID, Deion, Adrenal glad insufficiency, Non-Hodgkins (EMORY LUCAS APRN) Past Surgical History: Cholecystectomy, Other Additional Past Surgical Histo: Cervical lymph node removal, multiple abdominal surgeries, right ankle (EMORY LUCAS APRN) Alcohol Use: None Drug Use: None (EMORY LUCAS APRN) Adult General Chief Complaint Chief Complaint: ABDOMINAL PAIN HPI HPI Patient is a 28 year old female with female with history of non-Hodgkin's lymphoma, adrenal gland issues, who presents to the ED today complaining of 8 out of 10 right lower quadrant abdominal pain that has been going on for a couple days, patient states she was seen in the ED 2 days ago and was told she has an ovarian cyst, she states she was informed she needs to have a pelvic ultrasound to see how bad this cyst is. She presents today requesting a pelvic ultrasound. She states she is already on control and was told by the INTERVENTIONAL RADIOLOGY TECH she will never have an ovarian cyst. Patient is also complaining of nausea, she states she is allergic to Zofran, Compazine, Reglan. She states the only nausea medicine she is not allergic to use Phenergan. (EMORY LUCAS APRN) Review of Systems Review of Systems Constitutional: Denies fever or chills [] Eyes: Denies change in visual acuity, redness, or eye pain [] HENT: Denies nasal congestion or sore throat [] Respiratory: Denies cough or shortness of breath [] Cardiovascular: No additional information not addressed in HPI [] GI: Reports right lower quadrant abdominal pain and nausea due to ovarian cyst, denies vomiting, bloody stools or diarrhea [] : Denies dysuria or hematuria [] Musculoskeletal: Denies back pain or joint pain [] Integument: Denies rash or skin lesions [] Neurologic: Denies headache, focal weakness or sensory changes [] All other systems were reviewed and found to be within normal limits, except as documented in this note. (EMORY LUCAS APRN) Current Medications Current Medications Current Medications Medications (Trade) Dose Ordered Sig/Osiel Start Time Stop Time Status Last Admin Dose Admin Morphine Sulfate (Morphine Sulfate) 5 mg 1X ONCE 04/08/19 23:15 04/08/19 23:17 DC 04/08/19 23:39 5 MG Promethazine HCl (Phenergan Supp) 25 mg 1X ONCE 04/08/19 23:30 04/08/19 23:31 DC 04/08/19 23:38 25 MG (NERY SANTOYO DO) Allergies Allergies Allergies Coded Allergies Type Severity Reaction Last Updated Verified latex Allergy Severe Rash 12/23/18 Yes vancomycin Allergy Severe Rash 12/23/18 Yes adhesive Allergy Intermediate Rash 12/23/18 Yes ketorolac Allergy Intermediate Rash 12/23/18 Yes ondansetron Allergy Intermediate Rash 12/23/18 Yes metoclopramide Allergy Mild Anxiety 12/23/18 Yes haloperidol Allergy Unknown 04/04/19 Yes prednisone Adverse Reaction Severe Anxiety 12/23/18 Yes (NERY SANTOYO DO) Physical Exam Physical Exam Constitutional: Well developed, well nourished, no acute distress, non-toxic appearance. [] HENT: Normocephalic, atraumatic, bilateral external ears normal, oropharynx moist, no oral exudates, nose normal. [] Eyes: PERRLA, EOMI, conjunctiva normal, no discharge. [] Neck: Normal range of motion, no tenderness, supple, no stridor. [] Cardiovascular:Heart rate regular rhythm, no murmur [] Lungs & Thorax: Bilateral breath sounds clear to auscultation [] Abdomen: Bowel sounds normal, soft, tenderness diffusely throughout the right as well as the left pelvic region, negative psoas sign, negative obturator sign tenderness, no masses, no pulsatile masses. [] Skin: Warm, dry, no erythema, no rash. [] Back: No tenderness, no CVA tenderness. [] Extremities: No tenderness, no cyanosis, no clubbing, ROM intact, no edema. [] Neurologic: Alert and oriented X 3, normal motor function, normal sensory function, no focal deficits noted. [] Psychologic: Affect normal, judgement normal, mood normal. [] (EMORY LUCAS APRN) Current Patient Data Vital Signs Vital Signs Date Time Temp Pulse Resp B/P (MAP) Pulse Ox O2 Delivery O2 Flow Rate FiO2 04/08/19 23:39 17 98 Room Air 04/08/19 22:45 98.4 88 112/67 (82) 98.4 (NERY SANTOYO DO) Lab Values Laboratory Tests Test 04/08/19 22:51 POC Urine HCG, Qualitative Hcg negative (Negative) (NERY SANTOYO DO) EKG EKG [] (EMORY LUCAS APRN) Radiology/Procedures Radiology/Procedures [] (EMORY LUCAS APRN) Radiology/Procedures PROCEDURE: TRANSVAGINAL STUDY: Transvaginal pelvic ultrasound INDICATION: Pelvic pain. Ovarian cysts. COMPARISON: Pelvic ultrasound 01/22/2019; CT head with/pelvis 04/04/2019 TECHNIQUE: Grayscale and color Doppler sonography of the pelvis utilizing transvaginal technique. FINDINGS: The uterus measures 7.5 x 4.8 x 3.4 cm. The endometrium measures 5.9 mm in thickness. No focal uterine parenchymal abnormality. The right ovary measures 2.8 x 2.3 x 2.1 cm. The left ovary measures 2.3 x 1.3 x 1.2 cm. Normal Doppler flow maintained to both ovaries. No free fluid seen within the deep pelvis. Scattered bilateral ovarian follicles. Complex focus within the right ovary measuring 1.7 x 1.7 x 2.2 cm which could represent a collapsing corpus luteum cyst or a hemorrhagic cyst. No suspicious vascular flow to this finding. IMPRESSION: 1. Within normal limits thickness of the endometrium given patient age. Unremarkable uterine parenchyma. 2. No findings to suggest ovarian torsion. Within the right ovary, complex cystic focus measuring 2.2 x 1.7 x 1.7 cm which is likely indicative of a collapsing corpus luteum cyst or a hemorrhagic cyst. Given size and the absence of suspicious Doppler flow to this structure, dedicated follow-up is not necessary unless there are ongoing symptoms. Electronically signed by: HONG KRUGER MD (04/09/2019 1:22 AM) [facility] (NERY SANTOYO DO) Course & Med Decision Making Course & Med Decision Making Pertinent Labs and Imaging studies reviewed. (See chart for details) This is a 28-year-old female patient who presents to the ED today stating she was diagnosed with ovarian cyst by CT 2 days ago and would like an ultrasound to see how bad her ovarian cyst is. She is also requesting something for pain and nausea and stating she is allergic to Zofran, Compazine, Reglan. She states the only nausea medicine she can have is Phenergan. Informed patient we do not offer Phenergan IV in the ED, recommended Phenergan suppository. Pelvic ultrasound was done which was noted for resolving complex right ovarian cyst. Results were given to patient, she has an INTERVENTIONAL RADIOLOGY TECH, requested her to follow-up with her INTERVENTIONAL RADIOLOGY TECH as soon as possible. Ktracs-this patient has been getting narcotics from multiple prescribers including some of them are out of state. (EMORY LUCAS APRN) Dragon Disclaimer Dragon Disclaimer This electronic medical record was generated, in whole or in part, using a voice recognition dictation system. (EMORY LUCAS APRN) Departure Departure Impression: Primary Impression: Ovarian cyst, right Disposition: HOME, SELF-CARE Condition: STABLE Referrals: POSTJING MD (PCP) Please follow-up with your primary care doctor as well as your INTERVENTIONAL RADIOLOGY TECH as soon as possible Patient Instructions: Ovarian Cyst, [id number] Additional Instructions: Your pelvic ultrasound shows a right ovarian cyst appears to be resolving. Please follow-up with your INTERVENTIONAL RADIOLOGY TECH as well as primary care doctor as soon as possible. Attending Signature Attending Signature I have reviewed the PA/CORRESPONDENCE COORDINATOR's note and plan of care. I was available for consultation as needed during the patient's visit in the emergency department. I agree with the clinical impression, plan, and disposition. (NERY SANTOYO DO) EMORY LUCAS APRN Apr 09, 2019 00:49 NERY SANTOYO DO Apr 09, 2019 01:32
--- NOTE | 2019-04-09 01:25 | RAD ---
STUDY: Transvaginal pelvic ultrasound INDICATION: Pelvic pain. Ovarian cysts. COMPARISON: Pelvic ultrasound 01/22/2019; CT head with/pelvis 04/04/2019 TECHNIQUE: Grayscale and color Doppler sonography of the pelvis utilizing transvaginal technique. FINDINGS: The uterus measures 7.5 x 4.8 x 3.4 cm. The endometrium measures 5.9 mm in thickness. No focal uterine parenchymal abnormality. The right ovary measures 2.8 x 2.3 x 2.1 cm. The left ovary measures 2.3 x 1.3 x 1.2 cm. Normal Doppler flow maintained to both ovaries. No free fluid seen within the deep pelvis. Scattered bilateral ovarian follicles. Complex focus within the right ovary measuring 1.7 x 1.7 x 2.2 cm which could represent a collapsing corpus luteum cyst or a hemorrhagic cyst. No suspicious vascular flow to this finding. IMPRESSION: 1. Within normal limits thickness of the endometrium given patient age. Unremarkable uterine parenchyma. 2. No findings to suggest ovarian torsion. Within the right ovary, complex cystic focus measuring 2.2 x 1.7 x 1.7 cm which is likely indicative of a collapsing corpus luteum cyst or a hemorrhagic cyst. Given size and the absence of suspicious Doppler flow to this structure, dedicated follow-up is not necessary unless there are ongoing symptoms. Electronically signed by: HONG KRUGER MD (04/09/2019 1:22 AM) [facility]
== END 2019-04-09 01:01 | disposition home or self-care (01) ==
LOC: ER 22:34
DX: N83.201 Unspecified ovarian cyst, right side (principal); R11.0 Nausea; Z90.49 Acquired absence of other specified parts of digestive tract; Z88.1 Allergy status to other antibiotic agents; Z88.8 Allergy status to other drugs, medicaments and biological substances; Z91.040 Latex allergy status
CPT/HCPCS: 76830; 81025; 96372; 99284; J2270

== ENCOUNTER 2019-05-11 00:54 | Emergency (ER) | payer OTHER ==
[~2019-05-11] VITALS: Ht 167.6 cm; Wt 93.0 kg
[2019-05-11] MEDS ORDERED: KETOROLAC 60 MG/2 ML VIAL. IM ONE (01:30)
[2019-05-11 01:34] LABS: BILIRUBIN,URINE NEGATIVE (NEG); CLARITY,URINE CLEAR; COLOR,URINE YELLOW; NITRITE,URINE NEGATIVE (NEG); PH,URINE 5.5; PROTEIN,URINE NEGATIVE (NEG-TRACE); UROBILINOGEN,URINE 0.2 mg/dL (0.2 mg/dL)
[2019-05-11 01:48] LABS: BASO % 1 % (0-3); EOS # 0.1 x10^3/uL (0.0-0.7); EOS % 2 % (0-3); HEMATOCRIT 34.5 % (36.0-47.0); HEMOGLOBIN 11.4 g/dL (12.0-15.5); LYMPH # 2.6 x10^3/uL (1.0-4.8); LYMPH % 37 % (24-48); MEAN CORPUSCULAR HEMOGLOBIN 27 pg (25-35); MEAN CORPUSCULAR HGB CONC 33 g/dL (31-37); MEAN CORPUSCULAR VOLUME 81 fL (79-100); MONO # 0.4 x10^3/uL (0.0-1.1); MONO % 6 % (0-9); NEUT # 3.9 x10^3/uL (1.8-7.7); NEUT % 55 % (31-73); PLATELET COUNT 215 x10^3/uL (140-400); RED BLOOD COUNT 4.28 x10^6/uL (3.50-5.40); RED CELL DISTRIBUTION WIDTH 14.9 % (11.5-14.5)
[2019-05-11 01:48] LABS: BACTERIA,URINE MODERATE /HPF (0-FEW); SQUAMOUS EPITHELIAL CELL,UR MOD /LPF
[2019-05-11 01:56] LABS: CALCIUM 8.9 mg/dL (8.5-10.1); CREATININE 0.8 mg/dL (0.6-1.0); POTASSIUM 3.7 mmol/L (3.5-5.1)
--- NOTE | 2019-05-11 01:57 | PHYS DOC ---
Past Medical History Past Medical History: Cancer, Other Additional Past Medical Histor: CVID, Deion, Adrenal glad insufficiency, Non-Hodgkins Past Surgical History: Cholecystectomy, Other Additional Past Surgical Histo: Cervical lymph node removal, multiple abdominal surgeries, right ankle Alcohol Use: None Drug Use: None Adult General Chief Complaint Chief Complaint: ABDOMINAL PAIN HPI HPI 28-year-old female presents immersed for complaints of right-sided pain, nausea, vomiting, urinary frequency. Patient was seen at [facility] today diagnosed with pyelonephritis provided with prescriptions however states pharmacy was unable to fill her prescriptions. Therefore she presents emergency department for further evaluation here given continued pain. When asked what the issue was a pharmacy she states there was some difficulty with the availability of the medication. Patient states she felt worse therefore presented to the ER for further evaluation. Nothing makes her pain worse, nothing makes her pain better. Review of Systems Review of Systems Constitutional: fever Respiratory: Denies cough or shortness of breath [] Cardiovascular: No additional information not addressed in HPI [] GI: Denies abdominal pain, + nausea, vomiting, no bloody stools or diarrhea [] : Denies dysuria or hematuria [] Musculoskeletal: right side pain, CVA tenderness Integument: Denies rash or skin lesions [] Neurologic: Denies headache, focal weakness or sensory changes [] All other systems were reviewed and found to be within normal limits, except as documented in this note. Current Medications Current Medications Current Medications Medications (Trade) Dose Ordered Sig/[facility] Start Time Stop Time Status Last Admin Dose Admin Ceftriaxone Sodium (Rocephin) 1 gm 1X ONCE 05/11/19 02:30 05/11/19 02:31 DC 05/11/19 02:30 1 GM Ketorolac Tromethamine (Toradol Im) 60 mg 1X ONCE 05/11/19 01:30 05/11/19 01:47 DC Promethazine HCl (Phenergan Supp) 25 mg 1X ONCE 05/11/19 02:30 05/11/19 02:31 DC 05/11/19 02:37 25 MG Promethazine HCl (Phenergan) 12.5 mg 1X ONCE 05/11/19 02:15 05/11/19 02:18 DC Ringer's Solution 1,000 ml @ 1,000 mls/hr Q1H 05/11/19 02:00 05/11/19 02:59 05/11/19 02:15 1,000 MLS/HR Tramadol HCl (Ultram) 50 mg 1X ONCE 05/11/19 02:00 05/11/19 02:01 DC Allergies Allergies Allergies Coded Allergies Type Severity Reaction Last Updated Verified latex Allergy Severe Rash 12/23/18 Yes vancomycin Allergy Severe Rash 12/23/18 Yes adhesive Allergy Intermediate Rash 12/23/18 Yes haloperidol Allergy Intermediate 05/11/19 Yes ketorolac Allergy Intermediate Rash 12/23/18 Yes ondansetron Allergy Intermediate Rash 12/23/18 Yes metoclopramide Allergy Mild Anxiety 12/23/18 Yes prednisone Adverse Reaction Severe Anxiety 12/23/18 Yes Physical Exam Physical Exam Constitutional: Well developed, well nourished, no acute distress, non-toxic appearance. [] HENT: Normocephalic, atraumatic, bilateral external ears normal, oropharynx moist, no oral exudates, nose normal. [] Eyes: PERRLA, EOMI, conjunctiva normal, no discharge. [] Cardiovascular:Heart rate regular rhythm, no murmur [] Lungs & Thorax: Bilateral breath sounds clear to auscultation [] Abdomen: Bowel sounds normal, soft, no tenderness, no masses, no pulsatile masses. [] Skin: Warm, dry, no erythema, no rash. [] Back: R CVA tenderness Extremities: No tenderness, no edema. [] Neurologic: Alert and oriented X 3, no focal deficits noted. [] Psychologic: Affect normal, judgement normal, mood normal. [] Current Patient Data Vital Signs Vital Signs Date Time Temp Pulse Resp B/P (MAP) Pulse Ox O2 Delivery O2 Flow Rate FiO2 05/11/19 00:58 97.7 67 16 118/68 (85) 100 Room Air 97.7 Lab Values Laboratory Tests Test 05/11/19 01:13 05/11/19 01:15 05/11/19 01:39 POC Urine HCG, Qualitative Hcg negative (Negative) Urine Collection Type Unknown Urine Color Yellow Urine Clarity Clear Urine pH 5.5 Urine Specific [place] <=1.005 Urine Protein Negative mg/dL (NEG-TRACE) Urine Glucose (UA) Negative mg/dL (NEG) Urine Ketones (Stick) Negative mg/dL (NEG) Urine Blood Large (NEG) Urine Nitrite Negative (NEG) Urine Bilirubin Negative (NEG) Urine Urobilinogen Dipstick 0.2 mg/dL (0.2 mg/dL) Urine Leukocyte Esterase Trace (NEG) Urine RBC 3-5 /HPF (0-2) Urine WBC 1-4 /HPF (0-4) Urine Squamous Epithelial Cells Mod /LPF Urine Bacteria Moderate /HPF (0-FEW) White Blood Count 7.0 x10^3/uL (4.0-11.0) Red Blood Count 4.28 x10^6/uL (3.50-5.40) Hemoglobin 11.4 g/dL (12.0-15.5) L Hematocrit 34.5 % (36.0-47.0) L Mean Corpuscular Volume 81 fL (79-100) Mean Corpuscular Hemoglobin 27 pg (25-35) Mean Corpuscular Hemoglobin Concent 33 g/dL (31-37) Red Cell Distribution Width 14.9 % (11.5-14.5) H Platelet Count 215 x10^3/uL (140-400) Neutrophils (%) (Auto) 55 % (31-73) Lymphocytes (%) (Auto) 37 % (24-48) Monocytes (%) (Auto) 6 % (0-9) Eosinophils (%) (Auto) 2 % (0-3) Basophils (%) (Auto) 1 % (0-3) Neutrophils # (Auto) 3.9 x10^3/uL (1.8-7.7) Lymphocytes # (Auto) 2.6 x10^3/uL (1.0-4.8) Monocytes # (Auto) 0.4 x10^3/uL (0.0-1.1) Eosinophils # (Auto) 0.1 x10^3/uL (0.0-0.7) Basophils # (Auto) 0.0 x10^3/uL (0.0-0.2) Sodium Level 144 mmol/L (136-145) Potassium Level 3.7 mmol/L (3.5-5.1) Chloride Level 105 mmol/L (98-107) Carbon Dioxide Level 27 mmol/L (21-32) Anion Gap 12 (6-14) Blood Urea Nitrogen 8 mg/dL (7-20) Creatinine 0.8 mg/dL (0.6-1.0) Estimated GFR (Cockcroft-Gault) 86.0 BUN/Creatinine Ratio 10 (6-20) Glucose Level 93 mg/dL (70-99) Calcium Level 8.9 mg/dL (8.5-10.1) Total Bilirubin 0.2 mg/dL (0.2-1.0) Aspartate Amino Transferase (AST) 21 U/L (15-37) Alanine Aminotransferase (ALT) 20 U/L (14-59) Alkaline Phosphatase 132 U/L (46-116) H Total Protein 7.6 g/dL (6.4-8.2) Albumin 3.7 g/dL (3.4-5.0) Albumin/Globulin Ratio 0.9 (1.0-1.7) L Laboratory Tests 05/11/19 01:39 Laboratory Tests 05/11/19 01:39 EKG EKG [] Radiology/Procedures Radiology/Procedures [] Course & Med Decision Making Course & Med Decision Making Pertinent Labs and Imaging studies reviewed. (See chart for details) []28-year-old female presents immersed for complaints of right-sided pain, nausea, vomiting, urinary frequency. Patient was seen at [facility] today diagnosed with pyelonephritis provided with prescriptions however states pharmacy was unable to fill her prescriptions. Therefore she presents emergency department for further evaluation here given continued pain. When asked what the issue was a pharmacy she states there was some difficulty with the availability of the medication. Patient states she felt worse therefore presented to the ER for further evaluation. Nothing makes her pain worse, nothing makes her pain better. Reviewed labs with patient - UAD without evidence of UTI Reviewed records from [place] - no evidence of UTI however patient provided with abx upon discharge Patient states she has anti-nausea medications at home. Recommend continued po abx as prescribed Dragon Disclaimer Dragon Disclaimer This electronic medical record was generated, in whole or in part, using a voice recognition dictation system. Departure Departure Impression: Primary Impression: Abdominal pain Additional Impression: Nausea & vomiting Disposition: HOME, SELF-CARE Condition: STABLE Referrals: JING ROYAL MD (PCP) Patient Instructions: Abdominal Pain Additional Instructions: Recommend follow up with PCP 3 - 5 days Return to the ER with worsening symptoms, intractable pain, fever, altered mental status Tylenol/Motrin as needed for pain Take antibiotics as directed - patient received abx rx from [facility] Take anti-nausea medications as directed from current prescription at home Problem Qualifiers Primary Impression: Abdominal pain Abdominal location: unspecified location Qualified Codes: R10.9 - Unspecified abdominal pain Additional Impression: Nausea & vomiting Vomiting type: unspecified Vomiting Intractability: unspecified Qualified Codes: R11.2 - Nausea with vomiting, unspecified MARITZA CAMPBELL MD May 11, 2019 01:57
[2019-05-11] MEDS ORDERED: IV RINGERS,LACTATED 1000ML 1,000 ML IV SCH (02:00)
[2019-05-11] MEDS ORDERED: traMADol 50 MG TABLET PO ONE (02:00)
[2019-05-11 02:02] LABS: ALBUMIN 3.7 g/dL (3.4-5.0); ALBUMIN/GLOBULIN RATIO 0.9 (1.0-1.7); TOTAL BILIRUBIN 0.2 mg/dL (0.2-1.0); TOTAL PROTEIN 7.6 g/dL (6.4-8.2)
[2019-05-11] MEDS ORDERED: PROMETHAZINE 12.5 MG TABLET. PO ONE (02:15)
[2019-05-11] MEDS ORDERED: PROMETHAZINE 25 MG SUPP.RECT. PR ONE (02:30)
[2019-05-11] MEDS ORDERED: cefTRIAXone IV Push 1 GM VIAL. IVP ONE (02:30)
[2019-05-11 03:21] VITALS: BP 105/68
== END 2019-05-11 03:16 | disposition home or self-care (01) ==
LOC: ER 00:54
DX: R10.9 Unspecified abdominal pain (principal); R11.2 Nausea with vomiting, unspecified; R35.0 Frequency of micturition; Z90.49 Acquired absence of other specified parts of digestive tract; Z88.1 Allergy status to other antibiotic agents; Z88.8 Allergy status to other drugs, medicaments and biological substances; Z91.040 Latex allergy status
CPT/HCPCS: 36415; 80053; 81001; 81025; 85025; 87086; 96361; 96374; 99284; J0696; J7120

== ENCOUNTER 2019-06-17 18:16 | Emergency (ER) | payer OTHER ==
[~2019-06-17] VITALS: Ht 167.6 cm; Wt 93.0 kg
[2019-06-17 19:00] LABS: BILIRUBIN,URINE NEGATIVE (NEG); CLARITY,URINE CLEAR; COLOR,URINE YELLOW; NITRITE,URINE NEGATIVE (NEG); PROTEIN,URINE NEGATIVE (NEG-TRACE); UROBILINOGEN,URINE 0.2 mg/dL (0.2 mg/dL)
[2019-06-17] MEDS ORDERED: IV NORMAL SALINE 1000ML BAG 1,000 ML IV ONE (19:00)
[2019-06-17] MEDS ORDERED: CONTRAST GIVEN. MC PRN (19:00)
[2019-06-17 19:04] LABS: BASO % 0 % (0-3); EOS % 1 % (0-3); LYMPH # 3.3 x10^3/uL (1.0-4.8); LYMPH % 44 % (24-48); MEAN CORPUSCULAR HEMOGLOBIN 26 pg (25-35); MEAN CORPUSCULAR HGB CONC 33 g/dL (31-37); MEAN CORPUSCULAR VOLUME 81 fL (79-100); MONO # 0.5 x10^3/uL (0.0-1.1); MONO % 7 % (0-9); NEUT # 3.6 x10^3/uL (1.8-7.7); NEUT % 48 % (31-73); PLATELET COUNT 223 x10^3/uL (140-400); RED BLOOD COUNT 4.56 x10^6/uL (3.50-5.40); RED CELL DISTRIBUTION WIDTH 15.1 % (11.5-14.5); WHITE BLOOD COUNT 7.6 x10^3/uL (4.0-11.0)
[2019-06-17 19:05] LABS: BACTERIA,URINE FEW /HPF (0-FEW); SQUAMOUS EPITHELIAL CELL,UR MOD /LPF
[2019-06-17 19:06] LABS: AMPHETAMINE/METHAMPHETAMINE NEG (NEG); BARBITURATES NEG (NEG); BENZODIAZEPINES NEG (NEG); CANNABINOIDS NEG (NEG); COCAINE NEG (NEG); METHADONE NEG (NEG); OPIATES NEG (NEG); PHENCYCLIDINE NEG (NEG); RBC,URINE OCC /HPF (0-2)
[2019-06-17 19:10] LABS: CALCIUM 8.9 mg/dL (8.5-10.1); CREATININE 0.7 mg/dL (0.6-1.0); GFR 100.4; POTASSIUM 3.9 mmol/L (3.5-5.1)
[2019-06-17] MEDS ORDERED: fentaNYL PF VIAL 100 MCG/2 ML VIAL IVP ONE (19:15)
[2019-06-17] MEDS ORDERED: ONDANSETRON PF 4 MG/2 ML VIAL. IVP ONE (19:15)
[2019-06-17] MEDS: PROCHLORPERAZINE 10 MG/2 ML VIAL. IV ONE ×2 (19:15→19:34)
[2019-06-17 19:16] LABS: ALBUMIN 3.5 g/dL (3.4-5.0); ALBUMIN/GLOBULIN RATIO 0.7 (1.0-1.7); TOTAL BILIRUBIN 0.2 mg/dL (0.2-1.0); TOTAL PROTEIN 8.3 g/dL (6.4-8.2)
[2019-06-17] MEDS ORDERED: IOHEXOL 300 MG/ML 100ML VIAL. IV ONE (19:30)
--- NOTE | 2019-06-17 19:30 | PHYS DOC ---
Past Medical History Past Medical History: Cancer, Other Additional Past Medical Histor: CVID, Deion, Adrenal glad insufficiency, Non-Hodgkins (EMORY LUCAS APRN) Past Surgical History: Cholecystectomy, Other Additional Past Surgical Histo: Cervical lymph node removal,ABD SX, OVARIAN CYST REMOVAL, right ankle (EMORY LUCAS APRN) Alcohol Use: Rarely Drug Use: None (EMORY LUCAS APRN) Adult General Chief Complaint Chief Complaint: ABDOMINAL PAIN HPI HPI Patient is a 28 year old female who presents to the ED today complaining of 9 o ut of 10 right lower quadrant abdominal pain described as sharp and intermittent, symptoms began 3 days ago and got worse at noon today. Patient is also complaining of nausea and vomiting. Patient reports she was seen at [facility] 3 days ago for the same complaint, had a CAT scan of the abdomen and pelvis. She states she was informed her CAT scan was negative but she went the patient portal and found out she had inflammation around her appendix. She informs me she talked to the grandmother who used to work at [facility] and was instructed to come to the ED to be evaluated. She opened up the patient portal of [facility] with the CAT scan of the abdomen and pelvis t hat was done 3 days ago, the CAT scan shows no appendicitis, possible mesenteric adenitis. (EMORY LUCAS APRN) Review of Systems Review of Systems Constitutional: Denies fever or chills [] Eyes: Denies change in visual acuity, redness, or eye pain [] HENT: Denies nasal congestion or sore throat [] Respiratory: Denies cough or shortness of breath [] Cardiovascular: No additional information not addressed in HPI [] GI: Reports right lower quadrant abdominal pain with nausea and vomiting, denies bloody stools or diarrhea [] : Denies dysuria or hematuria [] Musculoskeletal: Denies back pain or joint pain [] Integument: Denies rash or skin lesions [] Neurologic: Denies headache, focal weakness or sensory changes [] All other systems were reviewed and found to be within normal limits, except as documented in this note. (EMORY LUCAS APRN) Current Medications Current Medications Current Medications Medications (Trade) Dose Ordered Sig/[facility] Start Time Stop Time Status Last Admin Dose Admin Fentanyl Citrate (Fentanyl 2ml Vial) 50 mcg 1X ONCE 06/17/19 19:15 06/17/19 19:16 DC 06/17/19 19:35 50 MCG Info (CONTRAST GIVEN -- Rx MONITORING) 1 each PRN DAILY PRN 06/17/19 19:00 06/17/19 20:37 DC Iohexol (Omnipaque 300 Mg/ml) 75 ml 1X ONCE 06/17/19 19:30 06/17/19 19:31 DC Ondansetron HCl (Zofran) 4 mg 1X ONCE 06/17/19 19:15 06/17/19 19:16 UNV Prochlorperazine Edisylate (Compazine) 10 mg 1X ONCE 06/17/19 19:15 06/17/19 19:16 DC Sodium Chloride 1,000 ml @ 1,000 mls/hr 1X ONCE 06/17/19 19:00 06/17/19 19:59 DC 06/17/19 19:34 1,000 MLS/HR (SANTOYO,TODD R DO) Allergies Allergies Allergies Coded Allergies Type Severity Reaction Last Updated Verified latex Allergy Severe Rash 12/23/18 Yes vancomycin Allergy Severe Rash 12/23/18 Yes adhesive Allergy Intermediate Rash 12/23/18 Yes haloperidol Allergy Intermediate 05/11/19 Yes ketorolac Allergy Intermediate Rash 12/23/18 Yes ondansetron Allergy Intermediate Rash 12/23/18 Yes prochlorperazine Allergy Intermediate 06/17/19 Yes metoclopramide Allergy Mild Anxiety 12/23/18 Yes prednisone Adverse Reaction Severe Anxiety 12/23/18 Yes (SANTOYO,TODD R DO) Physical Exam Physical Exam Constitutional: Well developed, well nourished, no acute distress, non-toxic ap pearance. [] HENT: Normocephalic, atraumatic, bilateral external ears normal, oropharynx moist, no oral exudates, nose normal. [] Eyes: PERRLA, EOMI, conjunctiva normal, no discharge. [] Neck: Normal range of motion, no tenderness, supple, no stridor. [] Cardiovascular:Heart rate regular rhythm, no murmur [] Lungs & Thorax: Bilateral breath sounds clear to auscultation [] Abdomen: Bowel sounds normal, soft, slight tenderness on palpation of the right lower quadrant, negative psoas sign, negative obturator sign, negative Rovsing sign, no masses, no pulsatile masses. [] Skin: Warm, dry, no erythema, no rash. [] Back: No tenderness, no CVA tenderness. [] Extremities: No tenderness, no cyanosis, no clubbing, ROM intact, no edema. [] Neurologic: Alert and oriented X 3, normal motor function, normal sensory function, no focal deficits noted. [] Psychologic: Affect normal, judgement normal, mood normal. [] (EMORY LUCAS APRN) Current Patient Data Vital Signs Vital Signs Date Time Temp Pulse Resp B/P (MAP) Pulse Ox O2 Delivery O2 Flow Rate FiO2 06/17/19 19:35 98 Room Air 06/17/19 18:40 98.1 103 20 130/83 (99) 98.1 (TODD SANTOYO DO) Lab Values Laboratory Tests Test 06/17/19 18:30 06/17/19 18:52 06/17/19 18:54 Urine Collection Type Unknown Urine Color Yellow Urine Clarity Clear Urine pH 7.0 Urine Specific [place] 1.010 Urine Protein Negative mg/dL (NEG-TRACE) Urine Glucose (UA) Negative mg/dL (NEG) Urine Ketones (Stick) Negative mg/dL (NEG) Urine Blood Negative (NEG) Urine Nitrite Negative (NEG) Urine Bilirubin Negative (NEG) Urine Urobilinogen Dipstick 0.2 mg/dL (0.2 mg/dL) Urine Leukocyte Esterase Trace (NEG) Urine RBC Occ /HPF (0-2) Urine WBC 1-4 /HPF (0-4) Urine Squamous Epithelial Cells Mod /LPF Urine Bacteria Few /HPF (0-FEW) Urine Opiates Screen Neg (NEG) Urine Methadone Screen Neg (NEG) Urine Barbiturates Neg (NEG) Urine Phencyclidine Screen Neg (NEG) Urine Amphetamine/Methamphetamine Neg (NEG) Urine Benzodiazepines Screen Neg (NEG) Urine Cocaine Screen Neg (NEG) Urine Cannabinoids Screen Neg (NEG) Urine Ethyl Alcohol Neg (NEG) POC Urine HCG, Qualitative Hcg negative (Negative) White Blood Count 7.6 x10^3/uL (4.0-11.0) Red Blood Count 4.56 x10^6/uL (3.50-5.40) Hemoglobin 12.0 g/dL (12.0-15.5) Hematocrit 37.0 % (36.0-47.0) Mean Corpuscular Volume 81 fL (79-100) Mean Corpuscular Hemoglobin 26 pg (25-35) Mean Corpuscular Hemoglobin Concent 33 g/dL (31-37) Red Cell Distribution Width 15.1 % (11.5-14.5) H Platelet Count 223 x10^3/uL (140-400) Neutrophils (%) (Auto) 48 % (31-73) Lymphocytes (%) (Auto) 44 % (24-48) Monocytes (%) (Auto) 7 % (0-9) Eosinophils (%) (Auto) 1 % (0-3) Basophils (%) (Auto) 0 % (0-3) Neutrophils # (Auto) 3.6 x10^3/uL (1.8-7.7) Lymphocytes # (Auto) 3.3 x10^3/uL (1.0-4.8) Monocytes # (Auto) 0.5 x10^3/uL (0.0-1.1) Eosinophils # (Auto) 0.0 x10^3/uL (0.0-0.7) Basophils # (Auto) 0.0 x10^3/uL (0.0-0.2) Sodium Level 141 mmol/L (136-145) Potassium Level 3.9 mmol/L (3.5-5.1) Chloride Level 102 mmol/L (98-107) Carbon Dioxide Level 27 mmol/L (21-32) Anion Gap 12 (6-14) Blood Urea Nitrogen 10 mg/dL (7-20) Creatinine 0.7 mg/dL (0.6-1.0) Estimated GFR (Cockcroft-Gault) 100.4 BUN/Creatinine Ratio 14 (6-20) Glucose Level 98 mg/dL (70-99) Calcium Level 8.9 mg/dL (8.5-10.1) Total Bilirubin 0.2 mg/dL (0.2-1.0) Aspartate Amino Transferase (AST) 19 U/L (15-37) Alanine Aminotransferase (ALT) 23 U/L (14-59) Alkaline Phosphatase 121 U/L (46-116) H Total Protein 8.3 g/dL (6.4-8.2) H Albumin 3.5 g/dL (3.4-5.0) Albumin/Globulin Ratio 0.7 (1.0-1.7) L Lipase 175 U/L (73-393) Ethyl Alcohol Level < 10 mg/dL (0-10) Laboratory Tests 06/17/19 18:54 Laboratory Tests 06/17/19 18:54 (TODD SANTOYO DO) EKG EKG [] (EMORY LUCAS APRN) Radiology/Procedures Radiology/Procedures []PROCEDURE: CT ABD PELV W/ IV CONTRST ONLY CT abdomen pelvis with contrast dated 06/17/2019. Comparison made to 04/04/2019. CLINICAL INDICATION: Right lower quadrant pain. TECHNIQUE: Contiguous axial imaging of the abdomen and pelvis performed after administration of 75 cc Omnipaque 300. One or more of the following individualized dose reduction techniques were utilized for this examination: 1. Automated exposure control 2. Adjustment of the mA and/or kV according to patient size 3. Use of iterative reconstruction technique. FINDINGS: Limited images of lung bases are clear. There is a tiny subpleural nodule in the right lower lobe on image 8 measures about 2 mm, nonspecific. Heart size within normal limits. No pleural or pericardial effusion. Liver, spleen, pancreas, adrenal glands and kidneys are unremarkable. No hydronephrosis. The gallbladder is surgically absent. Unopacified GI tract normal in caliber and contour. No focal bowel wall thickening. No inflammatory stranding in the mesentery. The appendix is not clearly identified. No inflammatory changes in the right lower quadrant. No ascites or lymphadenopathy. Abdominal aorta normal in caliber. Images of pelvis show nondistended urinary bladder. There is a 4 cm right ovarian cyst. Uterus and adnexa otherwise unremarkable. No free fluid or pelvic lymphadenopathy. Bone windows show no acute findings. IMPRESSION: 1. No acute abnormality of abdomen or pelvis. 2. There is a 4 cm left ovarian cyst, new from prior exam, likely functional. The previously described right ovarian cyst has resolved 3. Status post cholecystectomy. Electronically signed by: Todd Edward MD (06/17/2019 7:43 PM) [facility] DICTATED and SIGNED BY: TODD EDWARD MD DATE: 06/17/191942 (EMORY LUCAS APRN) Course & Med Decision Making Course & Med Decision Making Pertinent Labs and Imaging studies reviewed. (See chart for details) This is a 28-year-old female patient presenting to the ED today complaining of right lower quadrant abdominal pain for 3 days, see history of present illness. Patient was seen at [facility] 3 days ago for the same complaint. She reports she found out through the patient portal her CAT scan of the abdomen and pelvic was showing inflammation around her appendix which she states was not reported to her. She did open up the CAT scan results on her phone in the ED, the Ct results showed no appendicitis, possible mesenteric adenitis. CBC, CMP, lipase-no acute findings, UA is negative. CT of the abdomen and pelvic is negative, noted for left ovarian cyst which she can follow up with an RELEASE AND TECHNICAL RECORDS CLERK. Patient was discharged to home. Instructed to follow-up with her own primary care doctor. (EMORY LUCAS APRN) Dragon Disclaimer Dragon Disclaimer This electronic medical record was generated, in whole or in part, using a voice recognition dictation system. (EMORY LUCAS APRN) Departure Departure Impression: Primary Impression: Left ovarian cyst Additional Impression: Right lower quadrant pain Disposition: HOME, SELF-CARE Condition: STABLE Referrals: POSTJING MD (PCP) Follow up in the next 7 days Patient Instructions: Abdominal Pain (Nonspecific), Ovarian Cyst, [id number] Additional Instructions: You were evaluated in the emergency room for abdominal pain specifically to the right lower quadrant. Your CAT scan of the abdomen and pelvic is negative for any acute findings. You can follow-up with the RELEASE AND TECHNICAL RECORDS CLERK for the ovarian cyst. Please follow-up with your primary care doctor for the abdominal pain. Attending Signature Attending Signature I have reviewed the PA/COMMUNITY ADMINISTRATOR's note and plan of care. I was available for consultation as needed during the patient's visit in the emergency department. I agree with the clinical impression, plan, and disposition. (TODD SANTOYO DO) Problem Qualifiers EMORY LUCAS APRN Jun 17, 2019 19:30 TODD SANTOYO DO Jun 17, 2019 20:55
--- NOTE | 2019-06-17 19:45 | RAD ---
CT abdomen pelvis with contrast dated 06/17/2019. Comparison made to 04/04/2019. CLINICAL INDICATION: Right lower quadrant pain. TECHNIQUE: Contiguous axial imaging of the abdomen and pelvis performed after administration of 75 cc Omnipaque 300. One or more of the following individualized dose reduction techniques were utilized for this examination: 1. Automated exposure control 2. Adjustment of the mA and/or kV according to patient size 3. Use of iterative reconstruction technique. FINDINGS: Limited images of lung bases are clear. There is a tiny subpleural nodule in the right lower lobe on image 8 measures about 2 mm, nonspecific. Heart size within normal limits. No pleural or pericardial effusion. Liver, spleen, pancreas, adrenal glands and kidneys are unremarkable. No hydronephrosis. The gallbladder is surgically absent. Unopacified GI tract normal in caliber and contour. No focal bowel wall thickening. No inflammatory stranding in the mesentery. The appendix is not clearly identified. No inflammatory changes in the right lower quadrant. No ascites or lymphadenopathy. Abdominal aorta normal in caliber. Images of pelvis show nondistended urinary bladder. There is a 4 cm right ovarian cyst. Uterus and adnexa otherwise unremarkable. No free fluid or pelvic lymphadenopathy. Bone windows show no acute findings. IMPRESSION: 1. No acute abnormality of abdomen or pelvis. 2. There is a 4 cm left ovarian cyst, new from prior exam, likely functional. The previously described right ovarian cyst has resolved 3. Status post cholecystectomy. Electronically signed by: Todd Edward MD (06/17/2019 7:43 PM) [facility]
[2019-06-17 20:13] VITALS: BP 114/64
== END 2019-06-17 20:30 | disposition home or self-care (01) ==
LOC: ER 18:16
DX: N83.202 Unspecified ovarian cyst, left side (principal); R11.2 Nausea with vomiting, unspecified; Z90.49 Acquired absence of other specified parts of digestive tract; Z98.890 Other specified postprocedural states; Z85.72 Personal history of non-Hodgkin lymphomas; Z88.1 Allergy status to other antibiotic agents; Z88.5 Allergy status to narcotic agent; Z88.6 Allergy status to analgesic agent; Z91.040 Latex allergy status; Z88.8 Allergy status to other drugs, medicaments and biological substances
CPT/HCPCS: 36415; 74177; 80053; 80307; 81001; 81025; 83690; 85025; 87086; 96361; 96374; 99285; G0480; J3010; J7030; J0780